=== PATIENT | male | born 1960 | race Caucasian/White ===

== ENCOUNTER → 2016-07-27 | Outpatient (CLI) | payer BC, MEDICAID ==
--- NOTE | 2016-07-27 11:52 | XR ---
EXAMINATION TYPE: XR chest 2V DATE OF EXAM: 07/27/2016 11:48 AM COMPARISON: NONE HISTORY: Upper posterior chest pain TECHNIQUE: Frontal and lateral views of the chest are obtained. FINDINGS: There is no focal air space opacity, pleural effusion, or pneumothorax seen. The cardiac silhouette size is within normal limits. The osseous structures are intact. IMPRESSION: No acute cardiopulmonary process.
== END | disposition home or self-care (01) ==
LOC: RADXRMAIN 11:31
PROVIDERS: ATTEND Family Medicine
DX: R05 Cough (principal)
CPT/HCPCS: 71020

== ENCOUNTER 2019-09-04 07:15 | Day surgery (SDC) | payer BC ==
[2019-09-02 15:13] VITALS: BMI 28.3
[~2019-09-04 07:15] MED LIST: LACTATED RINGERS 1,000 ML IV SCH; LIDOCAINE 1% (10MG/ML) FOR IV START INTRADERMA PRN
[2019-09-04 08:05] VITALS: RESP 16; TEMP 97.3
[2019-09-04] MEDS ORDERED: fentaNYL (PF) 50 MCG/ML 2 ML AMP ONE (08:31)
[2019-09-04] MEDS ORDERED: PROPOFOL 10 MG/ML 20 ML VIAL IV ONE (08:31)
[2019-09-04] MEDS ORDERED: MIDAZOLAM 2 MG/2 ML VIAL ONE (08:31)
--- NOTE | 2019-09-04 08:47 | P.PCN ---
Date of Procedure: 09/04/19 Procedure(s) Performed: BRIEF HISTORY: Patient is a 58-year-old pleasant male scheduled for an elective colonoscopy as a part of screening for colorectal neoplasia. Last colonoscopy was 10 years PROCEDURE PERFORMED: Colonoscopy. PREOPERATIVE DIAGNOSIS: Screening for colon cancer. IV sedation per Anesthesia. PROCEDURE: After informed consent was obtained, the patient, was brought into the endoscopy unit. IV sedation was administered by Anesthesia under continuous monitoring. Digital rectal examination was normal. Initially the Olympus CF-160 flexible video colonoscope was then inserted in the rectum, gradually advanced into the cecum without any difficulty. Careful examination was performed as the scope was gradually being withdrawn. Ileocecal valve and the appendiceal orifice were visualized and appeared normal. Prep was excellent. Mucosa of the cecum, ascending colon, transverse colon, descending colon, sigmoid colon, and rectum appeared normal. Retroflexion was performed in the rectum and no lesions were seen. The patient tolerated the procedure well. IMPRESSION: Normal-appearing colon from rectum to cecum with no evidence of colorectal neoplasia . RECOMMENDATIONS: Findings of this examination were discussed with the patient as well as his family. He was advised to have a repeat screening colonoscopy in 10 years.
[2019-09-04 09:16] VITALS: BP 138/76; PULSE 59
== END 2019-09-04 09:23 | disposition home or self-care (01) ==
LOC: ORWHC2ENDO 07:15
PROVIDERS: ATTEND Internal Medicine Gastroenterology
DX: Z12.11 Encounter for screening for malignant neoplasm of colon (principal); I10 Essential (primary) hypertension
CPT/HCPCS: J2250; J3010; J2704; G0121

== ENCOUNTER → 2023-11-07 | Outpatient (CLI) | payer BC ==
--- NOTE | 2023-11-08 07:51 | XR ---
EXAMINATION TYPE: XR foot complete RT DATE OF EXAM: 11/07/2023 COMPARISON: None HISTORY: Pain TECHNIQUE: 3 view right foot FINDINGS: Tiny plantar calcaneal heel spurs present. No acute fracture or dislocation is evident. Joint spaces are preserved. Soft tissues appear normal. Follow up exams can be performed 7-10 days from acute trauma and pain IMPRESSION: 1. No acute osseous abnormality right foot.
--- NOTE | 2023-11-08 08:01 | XR ---
EXAMINATION TYPE: XR ankle complete RT DATE OF EXAM: 11/07/2023 COMPARISON: None HISTORY: Pain TECHNIQUE: 3 view right ankle FINDINGS: Ankle mortise is intact. Plantar calcaneal spurs are present. There is a minimal calcificat ion inferior to the medial malleolus. Tiny avulsion is not excluded. Correlate with location of the p atient's pain. A similar curvilinear calcification may be adjacent to the inferior lateral lateral m alleolus. IMPRESSION: 1. Tiny curvilinear calcifications adjacent to the inferior medial and lateral malleolus. Correlate with location of patient's pain. Minimal avulsions are not excluded.
== END | disposition home or self-care (01) ==
LOC: RADXRMAIN 17:09
PROVIDERS: ATTEND Family Medicine
DX: M25.871 Other specified joint disorders, right ankle and foot (principal); M19.171 Post-traumatic osteoarthritis, right ankle and foot